=== PATIENT | male | born 1940 | race Caucasian/White ===

== ENCOUNTER 2017-05-06 11:54 | Observation (INO) ==
[2017-05-06] MEDS ORDERED: GLUCAGON 1 MG VIAL IM PRN (12:05)
[2017-05-06] MEDS ORDERED: ACETAMINOPHEN 325 MG TABLET PO PRN (12:05)
[2017-05-06] MEDS ORDERED: ONDANSETRON 4 MG/2 ML VIAL IV PRN (12:05)
[2017-05-06] MEDS ORDERED: DEXTROSE 50% 25 GM/50 ML VIAL IV PRN (12:05)
[2017-05-06] MEDS ORDERED: DOCUSATE SODIUM 100 MG CAPSULE PO PRN (12:05)
[2017-05-06] MEDS ORDERED: IBUPROFEN 200 MG TABLET PO PRN (12:16)
[2017-05-06 14:15] LABS: Basophils % 0.3 % (0.0-0.8); Eosinophils # 0.1 10*3/uL (0.0-0.87); Eosinophils % 0.4 % (0.00-10.9); Hematocrit 40.4 VOL% (42.0-52.0); Hemoglobin 13.7 GM/DL (14.0-18.0); Immature Granulocytes % 1.1 %; Immature Granulocytes Absolute 0.15 #; Lymphocytes # 0.3 10*3/uL (1.4-4.0); Lymphocytes % 2.2 % (21.2-54.2); Mean Corpuscular HGB Conc 33.9 GM/DL (32-36); Mean Corpuscular Hemoglobin 31 PG (27-34); Mean Corpuscular Volume 91.8 FL (87-102); Mean Platelet Volume 11.2 FL (9.6-12.0); Monocytes # 0.8 10*3/uL (0.11-0.8); Monocytes % 5.7 % (1.7-12.7); Neutrophils # 12.8 10*3/uL (1.4-7.4); Neutrophils % 90.3 % (38.7-73.9); Platelet Count 172 T/CUMM (130-400); Red Cell Distribution Width 12.3 % (9.3-17.3); White Blood Count 14.1 T/CUMM (4-12)
[2017-05-06 14:45] LABS: Albumin 4.1 G/DL (3.4-5.0); Bilirubin,Total 0.9 MG/DL (0.2-1.0); Magnesium 1.2 MG/DL (1.8-2.4); Osmolality,Calculated 288.3 MOS/KG (273-304); Potassium 3.7 MMOL/L (3.5-5.1); Total Protein 7.5 G/DL (6.4-8.3)
[2017-05-06] MEDS ORDERED: AZITHROMYCIN INJ 500 MG in SODIUM CHLORIDE 0.9% 250 ML IV SCH (15:00)
[2017-05-06] MEDS: SODIUM CHLORIDE 0.9% 1,000 ML IV SCH (15:39)
[2017-05-06] MEDS: cefTRIAXone 1,000 MG in SYRINGE 1 EACH IV SCH (15:39)
[2017-05-06] MEDS: INSULIN LISPRO 100 UNIT/ML SUBCUT SCH ×2 (16:41→20:16)
[2017-05-06] MEDS ORDERED: ACETAMINOPHEN 500 MG TABLET PO PRN (17:50)
[2017-05-06 18:29] LABS: Apearance,Urine CLEAR (Clear); Bilirubin,Urine Negative (Negative); Blood, Urine Small mg/dL (Negative); Glucose,Urine (UA) Negative (Negative); Ketones,Urine Negative (Negative); Mucus,Urine Occasional /LPF (Occasional); Nitrite,Urine Negative (Negative); Protein,Urine Negative; RBC,Urine 2 /HPF (0-4); Squamous Epithelial Cell,Urine Occasional /HPF (0-10); Urine Color Yellow (Yellow); Urine Specific Gravity 1.012 (1.001-1.035); Urine Urobilinogen < 2.0 EU/DL (0.2-1.0); WBC,Urine 1 /HPF (0-6)
[2017-05-06] MEDS ORDERED: MAGNESIUM SULF RIDER 2 GM in PREMIX 1 EACH IV ONE (19:50)
[2017-05-06] MEDS: OSELTAMIVIR 30 MG CAPSULE PO SCH (20:53)
[2017-05-06] MEDS ORDERED: ENOXAPARIN 40 MG/0.4 ML SYRINGE SUBCUT SCH (21:00)
[2017-05-06] MEDS ORDERED: IBUPROFEN 400 MG TABLET PO PRN (21:00)
[2017-05-07] MEDS: SODIUM CHLORIDE 0.9% 1,000 ML IV SCH (04:44)
[2017-05-07 07:04] LABS: Basophils % 0.4 % (0.0-0.8); Hemoglobin 12.5 GM/DL (14.0-18.0); Immature Granulocytes % 0.7 %; Immature Granulocytes Absolute 0.07 #; Lymphocytes # 0.5 10*3/uL (1.4-4.0); Lymphocytes % 5.4 % (21.2-54.2); Mean Corpuscular HGB Conc 33.8 GM/DL (32-36); Mean Corpuscular Hemoglobin 31 PG (27-34); Mean Corpuscular Volume 90.9 FL (87-102); Mean Platelet Volume 11.3 FL (9.6-12.0); Monocytes # 0.4 10*3/uL (0.11-0.8); Monocytes % 4.4 % (1.7-12.7); Neutrophils # 8.6 10*3/uL (1.4-7.4); Neutrophils % 89.1 % (38.7-73.9); Platelet Count 143 T/CUMM (130-400); Red Blood Count 4.07 MC/CUMM (3.8-5.5); Red Cell Distribution Width 12.7 % (9.3-17.3); White Blood Count 9.7 T/CUMM (4-12)
[2017-05-07 07:32] LABS: Calcium 8.7 MG/DL (8.5-10.1); Magnesium 1.8 MG/DL (1.8-2.4); Osmolality,Calculated 288.3 MOS/KG (273-304); Potassium 3.5 MMOL/L (3.5-5.1)
[2017-05-07] MEDS: INSULIN LISPRO 100 UNIT/ML SUBCUT SCH ×2 (08:01→11:41)
[2017-05-07] MEDS ORDERED: PREGABALIN 100 MG CAPSULE PO SCH (09:00)
[2017-05-07] MEDS ORDERED: VALSARTAN 160 MG TABLET PO SCH (09:00)
[2017-05-07] MEDS ORDERED: PANTOPRAZOLE 40 MG TABLET PO SCH (09:00)
[2017-05-07] MEDS: OSELTAMIVIR 30 MG CAPSULE PO SCH (09:35)
[2017-05-07] MEDS: cefTRIAXone 1,000 MG in SYRINGE 1 EACH IV SCH (09:36)
[2017-05-07 12:11] VITALS: BP 154/74
[2017-05-07] MEDS ORDERED: VALSARTAN/HCTZ 80-12.5 MG TABLET PO SCH (13:00)
[2017-05-07] MEDS ORDERED: SIMVASTATIN 20 MG TABLET PO SCH (21:00)
== END 2017-05-07 15:36 | disposition home or self-care (01) ==
LOC: N.2E
PROVIDERS: ADMIT Family Medicine; ATTEND Family Medicine

== ENCOUNTER 2019-02-03 13:16 | Observation (INO) ==
[2019-02-03] MEDS ORDERED: DEXTROSE 10% 250 ML BAG IV PRN (13:42)
[2019-02-03] MEDS ORDERED: ONDANSETRON 4 MG/2 ML VIAL IV PRN (13:42)
[2019-02-03] MEDS ORDERED: GLUCAGON 1 MG VIAL IM PRN (13:42)
[2019-02-03] MEDS ORDERED: ACETAMINOPHEN 325 MG TABLET PO PRN (13:42)
[2019-02-03] MEDS ORDERED: cefTRIAXone 1,000 MG in SYRINGE 1 EACH IV SCH (16:00)
[2019-02-03] MEDS: INSULIN LISPRO 100 UNIT/ML SUBCUT SCH ×2 (17:15→20:49)
[2019-02-03] MEDS: SODIUM CHLORIDE 0.9% 1,000 ML IV SCH (17:20)
[2019-02-03] MEDS: SERTRALINE 25 MG TABLET PO SCH (17:20)
[2019-02-03] MEDS: DOCUSATE SODIUM 100 MG CAPSULE PO SCH (20:45)
[2019-02-03] MEDS ORDERED: ENOXAPARIN 30 MG/0.3 ML SYRINGE SUBCUT SCH (21:00)
[2019-02-03 23:58] LABS: Apearance,Urine CLEAR (Clear); Bilirubin,Urine Negative (Negative); Blood, Urine Negative (Negative); Glucose,Urine (UA) Negative (Negative); Hyaline Casts,Urine 9 /LPF (0-3); Ketones,Urine Negative (Negative); Mucus,Urine Occasional /LPF (Occasional); Nitrite,Urine Negative (Negative); Protein,Urine Negative; RBC,Urine 1 /HPF (0-4); Urine Color Yellow (Yellow); Urine Specific Gravity 1.026 (1.001-1.035); Urine Urobilinogen < 2.0 EU/DL (0.2-1.0); WBC,Urine 3 /HPF (0-6)
[2019-02-04] MEDS ORDERED: ZALEPLON 5 MG CAPSULE PO PRN (00:58)
[2019-02-04] MEDS ORDERED: MAGNESIUM SULF RIDER 4 GM in PREMIX 1 EACH IV PRN (01:39)
[2019-02-04] MEDS ORDERED: MAGNESIUM SULF RIDER 2 GM in PREMIX 1 EACH IV PRN (01:39)
[2019-02-04 05:47] LABS: Calcium 8.1 MG/DL (8.5-10.1); Osmolality,Calculated 288.4 MOS/KG (273-304)
[2019-02-04] MEDS: SODIUM CHLORIDE 0.9% 1,000 ML IV SCH (06:20)
[2019-02-04 06:23] LABS: Basophils % 0.4 % (0.0-0.8); Eosinophils # 0.3 10*3/uL (0.0-0.87); Eosinophils % 3.9 % (0.00-10.9); Hematocrit 37.2 VOL% (42.0-52.0); Hemoglobin 12.5 GM/DL (14.0-18.0); Immature Granulocytes % 0.7 %; Immature Granulocytes Absolute 0.05 #; Lymphocytes # 0.7 10*3/uL (1.4-4.0); Lymphocytes % 10.3 % (21.2-54.2); Mean Corpuscular HGB Conc 33.6 GM/DL (32-36); Mean Corpuscular Volume 92.1 FL (87-102); Mean Platelet Volume 11.2 FL (9.6-12.0); Neutrophils % 76.7 % (38.7-73.9); Platelet Count 147 T/CUMM (130-400); Red Blood Count 4.04 MC/CUMM (3.8-5.5); White Blood Count 6.9 T/CUMM (4-12)
[2019-02-04 08:09] VITALS: BP 162/78
[2019-02-04] MEDS: INSULIN LISPRO 100 UNIT/ML SUBCUT SCH (08:15)
[2019-02-04] MEDS ORDERED: PANTOPRAZOLE 40 MG TABLET PO SCH (09:00)
[2019-02-04] MEDS: DOCUSATE SODIUM 100 MG CAPSULE PO SCH (10:07)
[2019-02-04] MEDS: SERTRALINE 25 MG TABLET PO SCH (10:08)
== END 2019-02-04 12:12 | disposition home or self-care (01) ==
LOC: N.5E
PROVIDERS: ADMIT Family Medicine; ATTEND Family Medicine

== ENCOUNTER 2019-03-03 15:16 | Observation (INO) ==
[2019-03-03 16:45] LABS: Basophils % 0.3 % (0.0-0.8); Eosinophils # 0.2 10*3/uL (0.0-0.87); Eosinophils % 2.1 % (0.00-10.9); Hematocrit 44.1 VOL% (42.0-52.0); Immature Granulocytes % 0.6 %; Immature Granulocytes Absolute 0.06 #; Lymphocytes # 0.2 10*3/uL (1.4-4.0); Lymphocytes % 2.1 % (21.2-54.2); Mean Corpuscular Volume 92.8 FL (87-102); Mean Platelet Volume 10.6 FL (9.6-12.0); Monocytes % 3.9 % (1.7-12.7); Platelet Count 138 T/CUMM (130-400); Red Blood Count 4.75 MC/CUMM (3.8-5.5); Red Cell Distribution Width 12.5 % (9.3-17.3); White Blood Count 9.2 T/CUMM (4-12)
[2019-03-03 17:02] LABS: Alanine Aminotransferase 105 U/L (16-61); Albumin 3.9 G/DL (3.4-5.0); Alkaline Phosphatase 121 U/L (45-117); Aspartate Amino Transferase 89 U/L (0-37); Blood Urea Nitrogen 21 MG/DL (7-18); Calcium 9.3 MG/DL (8.5-10.1); Glucose 179 MG/DL (74-106); Osmolality,Calculated 285.4 MOS/KG (273-304); Total Protein 7.9 G/DL (6.4-8.3)
[2019-03-03 17:34] LABS: Eosinophils 3 % (0-10); Lymphocytes 1 % (20-55); Platelet Estimate Adequate; Segmented Neutrophils 91 % (50-85); Total Cells Counted 100
[2019-03-03 18:19] LABS: Apearance,Urine CLEAR (Clear); Bilirubin,Urine Negative (Negative); Blood, Urine Negative (Negative); Glucose,Urine (UA) Negative (Negative); Ketones,Urine Negative (Negative); Nitrite,Urine Negative (Negative); Protein,Urine Negative; RBC,Urine <1 /HPF (0-4); Urine Color Yellow (Yellow); Urine Specific Gravity 1.014 (1.001-1.035); Urine Urobilinogen < 2.0 EU/DL (0.2-1.0); WBC,Urine 2 /HPF (0-6)
[2019-03-03] MEDS ORDERED: SODIUM CHLORIDE 0.9% 1,000 ML IV STA (19:43)
[2019-03-03] MEDS ORDERED: PIPERACILLIN/TAZOBACTAM 3,375 MG in SODIUM CHLORIDE 0.9% 100 ML IV STA (19:54)
[2019-03-03] MEDS ORDERED: ONDANSETRON 4 MG/2 ML VIAL IV PRN (19:58)
[2019-03-03] MEDS ORDERED: ACETAMINOPHEN 325 MG TABLET PO PRN (19:58)
[2019-03-03] MEDS ORDERED: DEXTROSE 50% 25 GM/50 ML VIAL IV PRN (21:33)
[2019-03-03] MEDS ORDERED: GLUCAGON 1 MG VIAL IM PRN (21:33)
[2019-03-03] MEDS: DEXTROSE 5% NACL 0.45% 1,000 ML IV SCH (22:39)
[2019-03-03] MEDS: DOCUSATE SODIUM 100 MG CAPSULE PO SCH (22:42)
[2019-03-03] MEDS: INSULIN LISPRO 100 UNIT/ML SUBCUT SCH (22:42)
[2019-03-04 01:21] LABS: Basophils % 0.5 % (0.0-0.8); Eosinophils # 0.1 10*3/uL (0.0-0.87); Eosinophils % 1.1 % (0.00-10.9); Hematocrit 35.9 VOL% (42.0-52.0); Hemoglobin 12.1 GM/DL (14.0-18.0); Immature Granulocytes % 0.6 %; Immature Granulocytes Absolute 0.05 #; Lymphocytes # 0.3 10*3/uL (1.4-4.0); Lymphocytes % 3.2 % (21.2-54.2); Mean Corpuscular HGB Conc 33.7 GM/DL (32-36); Mean Corpuscular Volume 94.7 FL (87-102); Mean Platelet Volume 10.3 FL (9.6-12.0); Monocytes % 4.7 % (1.7-12.7); Neutrophils % 89.9 % (38.7-73.9); Platelet Count 137 T/CUMM (130-400); Red Blood Count 3.79 MC/CUMM (3.8-5.5); Red Cell Distribution Width 12.7 % (9.3-17.3); White Blood Count 8.5 T/CUMM (4-12)
[2019-03-04 01:49] LABS: Eosinophils 1 % (0-10); Lymphocytes 3 % (20-55); Segmented Neutrophils 92 % (50-85); Total Cells Counted 100
[2019-03-04 01:50] LABS: Bilirubin,Total 0.9 MG/DL (0.2-1.0); Calcium 8.5 MG/DL (8.5-10.1); Osmolality,Calculated 288.3 MOS/KG (273-304); Total Protein 6.3 G/DL (6.4-8.3)
[2019-03-04 01:52] LABS: Anisocytosis Slight; Ovalocytes Few
[2019-03-04 01:53] LABS: Microcytosis Slight; Platelet Estimate Adequate
[2019-03-04] MEDS: PIPERACILLIN/TAZOBACTAM 3,375 MG in SODIUM CHLORIDE 0.9% 100 ML IV SCH ×3 (03:58→20:38)
[2019-03-04] MEDS: DEXTROSE 5% NACL 0.45% 1,000 ML IV SCH (03:58)
[2019-03-04] MEDS: TAMSULOSIN 0.4 MG CAPSULE PO SCH (08:27)
[2019-03-04] MEDS: SERTRALINE 50 MG TABLET PO SCH (08:27)
[2019-03-04] MEDS: PANTOPRAZOLE 40 MG TABLET PO SCH (08:27)
[2019-03-04] MEDS: DOCUSATE SODIUM 100 MG CAPSULE PO SCH ×2 (08:27→20:37)
[2019-03-04] MEDS: METOPROLOL SUCCINATE XL 25 MG TABLET PO SCH (08:27)
[2019-03-04] MEDS: INSULIN LISPRO 100 UNIT/ML SUBCUT SCH ×4 (08:31→20:31)
[2019-03-04] MEDS ORDERED: MAGNESIUM HYDROXIDE SUSP 30 ML UDCUP PO ONE (10:08)
[2019-03-04] MEDS: SODIUM CHLORIDE 0.9% 1,000 ML IV SCH ×2 (10:26→20:38)
[2019-03-04] MEDS ORDERED: ACETAMINOPHEN 325 MG TABLET PO PRN (11:56)
[2019-03-05] MEDS: SODIUM CHLORIDE 0.9% 1,000 ML IV SCH ×2 (03:25→16:35)
[2019-03-05] MEDS: PIPERACILLIN/TAZOBACTAM 3,375 MG in SODIUM CHLORIDE 0.9% 100 ML IV SCH ×3 (03:31→20:01)
[2019-03-05] MEDS: INSULIN LISPRO 100 UNIT/ML SUBCUT SCH ×4 (07:54→23:22)
[2019-03-05] MEDS: DOCUSATE SODIUM 100 MG CAPSULE PO SCH ×2 (08:20→20:03)
[2019-03-05] MEDS: PANTOPRAZOLE 40 MG TABLET PO SCH (08:20)
[2019-03-05] MEDS: SERTRALINE 50 MG TABLET PO SCH (08:20)
[2019-03-05] MEDS: METOPROLOL SUCCINATE XL 25 MG TABLET PO SCH (08:20)
[2019-03-05] MEDS: TAMSULOSIN 0.4 MG CAPSULE PO SCH (08:20)
[2019-03-05] MEDS: POLYETHYLENE GLYCOL POWDER 17 GM PACK PO SCH (12:09)
[2019-03-06] MEDS: PIPERACILLIN/TAZOBACTAM 3,375 MG in SODIUM CHLORIDE 0.9% 100 ML IV SCH ×3 (03:16→20:50)
[2019-03-06 07:29] LABS: Basophils % 0.6 % (0.0-0.8); Eosinophils # 0.5 10*3/uL (0.0-0.87); Hematocrit 35.5 VOL% (42.0-52.0); Immature Granulocytes % 1.3 %; Immature Granulocytes Absolute 0.07 #; Lymphocytes # 0.7 10*3/uL (1.4-4.0); Lymphocytes % 13.8 % (21.2-54.2); Mean Corpuscular HGB Conc 33.8 GM/DL (32-36); Mean Corpuscular Volume 92.7 FL (87-102); Mean Platelet Volume 10.9 FL (9.6-12.0); Monocytes % 8.1 % (1.7-12.7); Neutrophils % 66.2 % (38.7-73.9); Platelet Count 145 T/CUMM (130-400); Red Blood Count 3.83 MC/CUMM (3.8-5.5); Red Cell Distribution Width 12.7 % (9.3-17.3); White Blood Count 5.3 T/CUMM (4-12)
[2019-03-06 07:59] LABS: Albumin 2.8 G/DL (3.4-5.0); Bilirubin,Total 0.4 MG/DL (0.2-1.0); Calcium 8.7 MG/DL (8.5-10.1); Osmolality,Calculated 283.4 MOS/KG (273-304); Total Protein 6.5 G/DL (6.4-8.3)
[2019-03-06] MEDS: METOPROLOL SUCCINATE XL 25 MG TABLET PO SCH (08:45)
[2019-03-06] MEDS: DOCUSATE SODIUM 100 MG CAPSULE PO SCH ×2 (08:45→20:50)
[2019-03-06] MEDS: POLYETHYLENE GLYCOL POWDER 17 GM PACK PO SCH (08:45)
[2019-03-06] MEDS: PANTOPRAZOLE 40 MG TABLET PO SCH (08:45)
[2019-03-06] MEDS: SERTRALINE 50 MG TABLET PO SCH (08:45)
[2019-03-06] MEDS: TAMSULOSIN 0.4 MG CAPSULE PO SCH (08:45)
[2019-03-06] MEDS: INSULIN LISPRO 100 UNIT/ML SUBCUT SCH ×4 (08:46→20:14)
[2019-03-06] MEDS: SODIUM CHLORIDE 0.9% 1,000 ML IV SCH ×4 (08:48→20:49)
[2019-03-06 14:34] LABS: Albumin 2.9 G/DL (3.4-5.0); Bilirubin,Direct 0.13 MG/DL (0.0-0.20); Bilirubin,Indirect 0.3 MG/DL (0.0-1.0); Bilirubin,Total 0.4 MG/DL (0.2-1.0); Total Protein 6.4 G/DL (6.4-8.3)
[2019-03-07] MEDS: SODIUM CHLORIDE 0.9% 1,000 ML IV SCH (03:37)
[2019-03-07] MEDS: PIPERACILLIN/TAZOBACTAM 3,375 MG in SODIUM CHLORIDE 0.9% 100 ML IV SCH (04:23)
[2019-03-07] MEDS: INSULIN LISPRO 100 UNIT/ML SUBCUT SCH (08:16)
[2019-03-07] MEDS: PANTOPRAZOLE 40 MG TABLET PO SCH (08:18)
[2019-03-07] MEDS: DOCUSATE SODIUM 100 MG CAPSULE PO SCH (08:18)
[2019-03-07] MEDS: METOPROLOL SUCCINATE XL 25 MG TABLET PO SCH (08:18)
[2019-03-07] MEDS: SERTRALINE 50 MG TABLET PO SCH (08:18)
[2019-03-07] MEDS: POLYETHYLENE GLYCOL POWDER 17 GM PACK PO SCH (08:21)
[2019-03-07 10:08] VITALS: BP 167/89
[2019-03-07] MEDS: TAMSULOSIN 0.4 MG CAPSULE PO SCH (10:22)
== END 2019-03-07 10:41 | disposition home or self-care (01) ==
LOC: N.EDINP 15:16 → N.ED 15:16 → N.5E 20:25
PROVIDERS: ADMIT Family Medicine; ATTEND Family Medicine